=== PATIENT | male | born 2000 | race Caucasian/White ===

== ENCOUNTER 2023-02-25 20:49 | Emergency (ER) | payer BC ==
[2023-02-25] MEDS ORDERED: Iopamidol 755 MG/ML 500 ML Multipack Bottle IVPUSH ONE (21:02)
[2023-02-25 21:08] LABS: BASOPHILS PERCENT AUTO 0.2 % (0.0-1.5); EOSINOPHILS ABSOLUTE AUTO 0.5 K/uL (0.0-0.7); EOSINOPHILS PERCENT AUTO 4.5 % (0.0-7.0); HEMOGLOBIN 14.6 g/dL (13.0-17.0); LYMPHOCYTES ABSOLUTE AUTO 4.7 K/uL (0.6-2.4); LYMPHOCYTES PERCENT AUTO 44.2 % (16.0-40.0); MEAN CORPUSCULAR HEMOGLOBIN 28.9 pg (27.0-32.0); MEAN CORPUSCULAR HGB CONC 32.4 g/dL (31.0-37.0); MEAN CORPUSCULAR VOLUME 88.9 fL (80.0-98.0); MONOCYTES ABSOLUTE AUTO 0.5 K/uL (0.0-0.8); MONOCYTES PERCENT AUTO 4.4 % (0.0-15.0); NEUTROPHILS ABSOLUTE AUTO 4.9 K/uL (1.4-5.7); NEUTROPHILS PERCENT AUTO 46.7 % (48.0-80.0); NRBC ABSOLUTE 0 K/uL; PLATELET COUNT,PLT 242 K/uL (150-400); RED BLOOD CELL COUNT 5.06 M/uL (4.50-5.90); WHITE BLOOD CELL COUNT,WBC 10.57 K/uL (4.0-11.0)
[2023-02-25 21:33] LABS: A/G RATIO 1.3 (0.9-1.6); ALBUMIN 3.5 g/dL (3.4-5.0); BILIRUBIN TOTAL 1.1 mg/dL (0.2-1.0); CALCIUM 8.5 mg/dL (8.5-10.1); CARBON DIOXIDE,CO2 27.4 mmol/L (21.0-32.0); CREATININE 1.1 mg/dL (0.8-1.3); EST CRCL DRUG DOSING (CG) 124.55 mL/min; POTASSIUM,K 3.6 mmol/L (3.5-5.1); PROTEIN TOTAL,TP 6.2 g/dL (6.4-8.2)
[2023-02-25] MEDS ORDERED: Diphtheria,Pertussis(Acell),Tetanus Vaccine 0.5 ML Syringe IM ONE (21:56)
[2023-02-25 22:16] LABS: INR 1.03 (0.86-1.11)
[2023-02-25] MEDS ORDERED: fentaNYL 100 MCG/2 ML SDV IVPUSH ONE (23:00)
== END 2023-02-25 23:00 ==
LOC: MW.ED 20:49
DX: S36.09XA Other injury of spleen, initial encounter (principal); V86.96XA Unspecified occupant of dirt bike or motor/cross bike injured in nontraffic accident, initial encounter; Y93.55 Activity, bike riding
CPT/HCPCS: 36415; 70450; 71045; 71260; 72125; 74177; 80053; 85025; 85610; 90471; 90715; 99285; Q9967

== ENCOUNTER 2023-12-17 23:12 | Emergency (ER) | payer SELFPAY ==
[2023-12-18] MEDS: predniSONE 10 MG Tab PO ONE (00:10)
[2023-12-18] MEDS: Albuterol/Ipratropium 3.0-0.5 MG/3 ML Neb Soln NEB ONE (00:10)
[2023-12-18] MEDS: Albuterol 0.083% 2.5 MG/3 ML Neb Soln NEB ONE (00:59)
== END 2023-12-18 01:22 | disposition home or self-care (01) ==
LOC: MW.ED 23:12
DX: J45.901 Unspecified asthma with (acute) exacerbation (principal); Z79.52 Long term (current) use of systemic steroids; Z75.8 Other problems related to medical facilities and other health care
CPT/HCPCS: 94640; 99284; A9270; 99283; J7620-GY